=== PATIENT | male | born 1960 | race Two or more races ===

== ENCOUNTER 2018-11-10 21:34 | Emergency (ER) | payer SELFPAY ==
[~2018-11-10] VITALS: Ht 165.1 cm; Wt 72.6 kg
[2018-11-10 21:38] VITALS: BP 143/94
--- NOTE | 2018-11-10 21:57 | Emergency Room Report ---
History of Present Illness General Chief Complaint: Generalized Weakness Source: Patient Present Illness HPI Patient is a 58-year-old male presented after increased left-sided leg numbness. Patient reports having increased numbness to the lateral thigh. This is been present for 2 days. Patient states this onset occurred after prolonged walking in the cold. Patient reports having prior history of diabetes. He denies any back pain. He denies any abdominal pain. He denies any recent trauma. Patient states that he had been having some slight increased difficulty with urination.Patient's had been ill with flulike illness with a nonproductive cough.Patient is not currently taking any diabetes medications. Allergies: Coded Allergies: No Known Allergies (Verified Allergy, Unknown, 04/14/10) Patient History Past Medical History: see triage record Reviewed Nursing Documentation: PMH: Agreed; PSxH: Agreed Nursing Documentation-PMH Past Medical History: No Stated History Hx Hypertension: Yes Hx Diabetes: Yes - type 1 Review of Systems All Other Systems: negative except mentioned in HPI Physical Exam Vital Signs Date Time Temp Pulse Resp B/P (MAP) Pulse Ox O2 Delivery O2 Flow Rate FiO2 11/10/18 21:37 97.9 91 15 143/94 99 Room Air Sp02 EP Interpretation: reviewed, normal General Appearance: normal inspection, well appearing, no apparent distress, alert, GCS 15 Head: atraumatic ENT: normal ENT inspection, hearing grossly normal, normal voice Neck: normal inspection, full range of motion, supple, no bony tend Respiratory: normal inspection, lungs clear, normal breath sounds, no respiratory distress, no retraction, no wheezing Cardiovascular #1: regular rate, rhythm, no edema Gastrointestinal: normal inspection, normal bowel sounds, non tender, soft, no guarding, no hernia Genitourinary: no CVA tenderness Musculoskeletal: normal inspection, back normal, normal range of motion Neurologic: normal inspection, alert, oriented x3, responsive, remote broadcast technician III-XII nml as tested, speech normal Psychiatric: normal inspection, judgement/insight normal, mood/affect normal Skin: normal inspection, normal color, no rash Medical Decision Making Diagnostic Impression: Primary Impression: Influenza B Additional Impression: Peripheral neuropathy ER Course Patient presented for left-sided leg numbness. Differential diagnosis include was not limited to vascular insufficiency, CVA, lumbar radiculopathy, peripheral neuropathy among others. Because of complexity of patient's case and imaging studies were ordered. Patient was noted to have recent onset of numbness to the lateral thigh to the left leg. The patient was noted to have brisk pulses distally. His extremity appears to be perfused well. Patient is noted to have prior history of diabetes. This may indicate a peripheral neuropathy.CT of the head as well as lumbar spine were ordered due to patient's left leg symptoms. CT of head read by radiology showed no evidence of acute CVA. Patient was also noted to CT lumbar spine which showed degenerative changes without evident fracture or malalignment. Patient was noted to have a spouse who tested positive for influenza B and patient is outside the window for Tamiflu at this time. Patient will be given prescription for Naprosyn as well as metformin for hyperglycemia. Patient does not appear to have any focal weakness consistent with Guillan Jennings at this time. Patient was noted to be ambulatory without assistance. Patient was advised to return if he developed any new weakness or other concerns Patient was advised to recheck with primary care physician and to return if there is any worsening of condition. Last Vital Signs Date Time Temp Pulse Resp B/P (MAP) Pulse Ox O2 Delivery O2 Flow Rate FiO2 11/10/18 21:37 97.9 91 15 143/94 99 Room Air Status: improved Disposition: HOME, SELF-CARE Condition: Stable Scripts Metformin Hcl* (METFORMIN HCL*) 500 Mg Tablet 500 MG ORAL TWICE A DAY, #60 TAB Prov: Hemanth Bear MD 11/10/18 Naproxen (Naproxen) 250 Mg Tablet 250 MG PO TWICE A DAY, #14 TAB Prov: Hemanth Bear MD 11/10/18 Hemanth Bear MD Nov 10, 2018 21:57
[2018-11-10] MEDS ORDERED: metFORMIN 500mg tab ORAL ONE (22:30)
[2018-11-10] MEDS ORDERED: Naproxen 500mg tab ORAL ONE (22:30)
--- NOTE | 2018-11-10 22:47 | Diagnostic Imaging Report ---
EXAM: CT Head Without Intravenous Contrast CLINICAL HISTORY: PAIN TECHNIQUE: Axial computed tomography images of the head/brain without intravenous contrast. CTDI is 70 mGy and DLP is 1347 mGy-cm. One or more of the following dose reduction techniques were used: automated exposure control, adjustment of the mA and/or kV according to patient size, use of iterative reconstruction technique. COMPARISON: No relevant prior studies available. FINDINGS: Brain: Unremarkable. No hemorrhage. No significant white matter disease. No edema. Ventricles: Unremarkable. No ventriculomegaly. Bones/joints: Unremarkable. No acute fracture. Soft tissues: Unremarkable. Sinuses: Unremarkable as visualized. No acute sinusitis. Mastoid air cells: Unremarkable as visualized. No mastoid effusion. IMPRESSION: Unremarkable unenhanced CT head.
--- NOTE | 2018-11-10 22:53 | Diagnostic Imaging Report ---
EXAM: CT Lumbar Spine Without Intravenous Contrast CLINICAL HISTORY: PAIN TECHNIQUE: Axial computed tomography images of the lumbar spine without intravenous contrast. CTDI is 17 mGy and DLP is 425 mGy-cm. One or more of the following dose reduction techniques were used: automated exposure control, adjustment of the mA and/or kV according to patient size, use of iterative reconstruction technique. Coronal and sagittal reformatted images were created and reviewed. Axial reformatted images were created and reviewed. COMPARISON: No relevant prior studies available. FINDINGS: Vertebrae: Incidentally noted 0.8 cm right L1 pedicle probable bone island, likely benign. Correlate with prior imaging if available. If none available, consider follow-up lumbar spine CT in 3-6 months versus lumbar spine MRI without and with intravenous contrast to evaluate further. Discs/spinal canal/neural foramina: Minimal multilevel degenerative spine findings, age-related. No spinal canal stenosis. Soft tissues: Unremarkable. Kidneys and ureters: Incidental note of normal variant retroaortic left renal vein. Other findings: No acute injury. IMPRESSION: 1. No acute injury. 2. Minimal multilevel degenerative spine findings, age-related. 3. Incidentally noted 0.8 cm right L1 pedicle probable bone island, likely benign. Correlate with prior imaging if available. If none available, consider follow-up lumbar spine CT in 3-6 months versus lumbar spine MRI without and with intravenous contrast to evaluate further.
[2018-11-10] MEDS ORDERED: METFORMIN HCL500 M1 ORAL (22:58)
[2018-11-10] MEDS ORDERED: NAPROXEN250 M1 PO (22:58)
[2018-11-10 23:05] VITALS: BP 157/90
== END 2018-11-10 23:13 | disposition home or self-care (01) ==
LOC: EMR 22:05
DX: J11.1 Influenza due to unidentified influenza virus with other respiratory manifestations (principal); G62.9 Polyneuropathy, unspecified; E10.9 Type 1 diabetes mellitus without complications; I10 Essential (primary) hypertension; R20.0 Anesthesia of skin
CPT/HCPCS: 70450; 72131; 82962; 99284